=== PATIENT | female | born 1995 | race Caucasian/White ===

== ENCOUNTER 2016-06-05 17:39 | Emergency (ER) | payer OTHER ==
[~2016-06-05] VITALS: Ht 162.6 cm; Wt 111.1 kg
[~2016-06-05 17:39] MED LIST: ETON1IMP2 INTRAD; LORA-741 PO
[2016-06-05 18:04] VITALS: BP 141/86; PULSE 96; TEMP 37.8; O2SAT 98; Ht 162.6 cm; Wt 111.1 kg
[2016-06-05] MEDS ORDERED: PHEN37.585 PO (19:12)
== END 2016-06-05 18:55 | disposition left against medical advice (07) ==
LOC: C.EDB 17:40
DX: M54.9 Dorsalgia, unspecified (principal)

== ENCOUNTER 2016-06-14 16:06 | Emergency (ER) | payer OTHER ==
[~2016-06-14] VITALS: Ht 162.6 cm; Wt 111.4 kg
[~2016-06-14 16:06] MED LIST changes: -LORA-741 PO; +PHEN37.585 PO
[2016-06-14 16:12] VITALS: TEMP 37.1; Ht 162.6 cm; Wt 111.4 kg
[2016-06-14] MEDS ORDERED: MoRPHine SULFATE 4 MG/ML 1 ML CARP\\VIAL IV STA (16:50)
[2016-06-14] MEDS ORDERED: LORAZEPAM 2 MG/ML 1 ML VIAL IV PRN (17:00)
--- NOTE | 2016-06-14 17:14 | EMERGENCY ROOM VISIT NOTE ---
History Report prepared by Marlo: Carol Barraza Under the Supervision of: Dr. Kay Rutledge D.O. First contact with patient: 16:35 Chief Complaint: BACK PAIN Stated Complaint: BACK PAIN, R LEG PAIN, DR REFER History of Present Illness The patient is a 20 year old female who presents to the Emergency Room with complaints of worsening lower back pain that started a couple months ago. 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 The patient got a CT scan of her back done, which revealed 5 bulging discs that were pushing on her nerves. She followed with her workman's compensation doctor and received work restrictions. The patient states that her employer did not follow the restrictions and she reinjured her back at work 2 days ago. She saw the workman's compensation doctor again yesterday and he wanted her to come in for an MRI because she was experiencing urinary incontinence. She did not want to come, so he told her to come into the ED if she experienced incontinence again. When she first experienced urinary incontinence she had a sensation right before she experienced incontinence, but today states she did not experience any pressure or sensation prior to experiencing incontinence. The patient states that her urine is still normal looking. No prior hx of bladder/kidney problems. The back pain radiates down the entirety of her right leg and after re-injury it began radiating down her left buttock. She is also experiencing right leg numbness, but denies any numbness in her groin. The patient denies any incontinence of stool and states that she tries to avoid having bowel movements because it hurts her back to sit down. She denies fevers, chills, abdominal pain, and lower extremity edema. Source of History: patient Onset: a couple months ago Position: back (lower) Quality: other (back pain) Timing: worsening Associated Symptoms: + numbness (right leg ), + urinary symptoms ( incontinence), No abdominal pain, No chills, No fevers Note: no incontinence of stool, right leg pain, no groin numbness, no lower extremity edema Review of Systems See HPI for pertinent positives & negatives. A total of 10 systems reviewed and were otherwise negative. Past Medical & Surgical Medical Problems: (1) FAM HX-DIABETES MELLITUS (2) FAMILY HISTORY OF OTHER CARDIOVASCULAR DISEASES (3) FAMILY HX-MALIGNANCY NOS (4) OVARIAN CYST NEC/NOS (5) TOBACCO USE DISORDER Family History Cancer Diabetes mellitus Heart disease Hypertension Social History Smoking Status: Current Every Day Smoker Alcohol Use: none Drug Use: none Marital Status: single Housing Status: lives with family Occupation Status: student Current/Historical Medications Scheduled Etonogestrel (Nexplanon), 68 MG INTRAD UD Phentermine Hcl (Adipex P), 37.5 MG PO DAILY Scheduled PRN Diazepam (Valium), 5 MG PO Q6H PRN for Muscle Spasms Lidocaine (Lidoderm Patch 5%), 1 PATCH TD DAILY PRN for Pain Oxycodone/Acetaminophen 5MG/325MG (Percocet 5MG/325MG), 1-2 TABS PO Q4H PRN for Pain Allergies Coded Allergies: Hydrocodone (Verified Allergy, Intermediate, hives, 06/14/16) Aspirin (Verified Allergy, Unknown, bleeding from eyes and ears, 06/14/16) Physical Exam Vital Signs Date Time Temp Pulse Resp B/P Pulse Ox O2 Delivery O2 Flow Rate FiO2 06/14/16 20:33 96 20 128/77 96 06/14/16 18:51 101 18 121/68 96 Room Air 06/14/16 16:12 37.1 93 18 146/88 99 Room Air Physical Exam GENERAL: alert, well appearing, well nourished, no distress, non-toxic, obese EYE EXAM: normal conjunctiva, PERRL and EOM's grossly intact OROPHARYNX: no exudate, no erythema, lips, buccal mucosa, and tongue normal and mucous membranes are moist NECK: supple, no nuchal rigidity, no adenopathy, non-tender LUNGS: Clear to auscultation. Normal chest wall mechanics HEART: no murmurs, S1 normal and S2 normal ABDOMEN: abdomen soft, non-tender, normo-active bowel sounds, no masses, no rebound or guarding. BACK: tenderness over lumbar spine and bilateral PSIS, no crepitus or step-offs RECTAL: Good rectal tone. SKIN: multiple body piercings, no rashes and no bruising UPPER EXTREMITIES: upper extremities are grossly normal. LOWER EXTREMITIES: Decreased sensation to right lower extremity, decreased range of motion bilaterally but right worse than left, patellar reflexes are 2+ bilaterally, no edema, normal capillary refill NEURO EXAM: Normal sensorium, cranial nerves II-XII grossly intact, normal speech, no gross weakness of arms, no gross weakness of legs. Medical Decision & Procedures ER Provider Diagnostic Interpretation: MRI results have been interpreted by the radiologist and reviewed by me. LUMBAR SPINE MRI HISTORY: back pain, incontinence TECHNIQUE: Multiplanar multisequence MRI of the lumbar spine was performed without the use of contrast. COMPARISON: None. FINDINGS: For the purpose of the report the L5-S1 disc space will be located on axial image 27 of 30. Normal signal characteristics of the vertebral bodies as well as intervertebral discs. L1-L2: No significant central canal or neural foraminal narrowing. L2-L3: No significant central canal or neural foraminal narrowing. L3-L4: No significant central canal or neural foraminal narrowing. L4-L5: No significant central canal or neural foraminal narrowing. L5-S1: No significant central canal or neural foraminal narrowing. IMPRESSION: Normal study Electronically signed by: Zeke Montelongo M.D. 06/14/2016 6:07 PM Dictated Date/Time: 06/14/2016 6:06 PM RENAL ULTRASOUND HISTORY: Hematuria hematuria, incontinence COMPARISON: None. FINDINGS: Right kidney: Maximum dimension 10.7 cm. No evidence for hydronephrosis. Normal corticomedullary differentiation and cortical thickness. Left kidney: Maximum dimension 11.7 cm. No evidence for hydronephrosis. Normal corticomedullary differentiation and cortical thickness. Bladder: No bladder wall thickening. The bilateral ureteral jets were identified. IMPRESSION: Normal renal ultrasound. Electronically signed by: Zeke Montelongo M.D. 06/14/2016 7:55 PM Laboratory Results Test 06/14/16 16:40 Urine Color YELLOW Urine Appearance CLOUDY (CLEAR) Urine pH 5.5 (4.5-7.5) Urine Specific [place] 1.031 (1.000-1.030) Urine Protein NEG (NEG) Urine Glucose (UA) NEG (NEG) Urine Ketones NEG (NEG) Urine Occult Blood TRACE (NEG) Urine Nitrite NEG (NEG) Urine Bilirubin NEG (NEG) Urine Urobilinogen NEG (NEG) Urine Leukocyte Esterase NEG (NEG) Urine WBC (Auto) 1-5 /hpf (0-5) Urine RBC (Auto) 0-4 /hpf (0-4) Urine Hyaline Casts (Auto) 1-5 /lpf (0-5) Urine Epithelial Cells (Auto) >30 /lpf (0-5) Urine Bacteria (Auto) 1+ (NEG) Laboratory results per my review. Medications Administered Medications (Trade) Dose Ordered Sig/Tasha Route Start Time Stop Time Status Last Admin Dose Admin Morphine Sulfate (MoRPHine SULFATE INJ) 4 mg ONE STAT IV 06/14/16 16:50 06/14/16 16:53 DC 06/14/16 17:04 4 MG Lorazepam (Ativan Inj) 1 mg ONE PRN IV 06/14/16 17:00 06/14/16 20:45 DC 06/14/16 17:19 1 MG Diazepam (Valium Tab) 5 mg NOW ONCE PO 06/14/16 19:15 06/14/16 19:16 DC 06/14/16 19:22 5 MG Oxycodone/ Acetaminophen (Percocet 5-325mg Tab) 1 tab ONE STAT PO 06/14/16 19:17 06/14/16 19:18 DC 06/14/16 19:22 1 TAB Lidocaine (Lidoderm Patch 5%) 1 patch NOW ONCE TD 06/14/16 20:00 06/14/16 20:01 DC 06/14/16 20:26 1 PATCH Ondansetron HCl (Zofran Odt) 4 mg NOW STAT PO 06/14/16 20:16 06/14/16 20:17 DC 06/14/16 20:26 4 MG ED Course 1639: The patient was evaluated in room A2. A complete history and physical exam was performed. 1650: Ordered Morphine Sulfate 4 mg IV 1700: Ordered Ativan Inj 1 mg IV 1828: I reassessed the patient and updated her on the patient's MRI results. I informed her that we are going to get a bladder scan. 2004: No episodes of incontinence in the ER. Pt well appearing, texting/ talking on phone, no apparent distress. Aware of all results, states pain improved. 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 Also advised close f/u with urology regarding urinary issues. 2014: pt ambulated to bathroom and got dressed without difficulty, states she was able to use the restroom at that time without incontinence. Medical Decision Differential diagnoses includes but is not limited to lumbar radiculopathy, muscle strain, facture, cauda equina, mass, and disc herniation. Pt likely here to get MRI. No cauda equina noted, normal study. Doubt urinary incontinence, possible urge incontinence and difficulty getting to bathroom due to pain. No evidence of infection, stone. Doubt pyelo, ARF. VS stable throughout. Pt offered admission, pt declined. Pt would like to f/u as outpt. Discussed ddx, sx to watch/return for, she verbalized understanding and was agreeable with plan. Impression Primary Impression: Back pain Additional Impression: Lumbar radiculopathy Scribe Attestation The scribe's documentation has been prepared under my direction and personally reviewed by me in its entirety. I confirm that the note above accurately reflects all work, treatment, procedures, and medical decision making performed by me. Departure Information Dispostion Home / Self-Care Prescriptions Diazepam (Valium) 5 Mg Tab 5 MG PO Q6H Y for Muscle Spasms, #10 TAB Prov: Kay Rutledge, DO 06/14/16 Lidocaine (Lidoderm Patch 5%) 1 Ea Tdsy 1 PATCH TD DAILY Y for Pain, #1 BOX Prov: Kay Rutledge, DO 06/14/16 Oxycodone/Acetaminophen 5MG/325MG (PERCOCET 5MG/325MG) Tab 1-2 TABS PO Q4H Y for Pain, #14 TAB Prov: Kay Rutledge, DO 06/14/16 Referrals Saúl Ospina M.D. (PCP) Patient Instructions [facility] Additional Instructions Please call and follow-up Thursday with your aviation medicine specialist. Please continue to monitor your urine. Please follow-up with urology about the urinary issues you have been having. If you have any worsening pain, notice change in the color/odor of your urine, develop fevers, are unable to walk, develop abdominal pain, or you have any other new or concerning symptoms, please return to the emergency room. Problem Qualifiers Primary Impression: Back pain Back pain location: low back pain Chronicity: chronic Back pain laterality : bilateral Sciatica presence: with sciatica Sciatica laterality: sciatica of right side Qualified Codes: M54.41 - Lumbago with sciatica, right side; G89.29 - Other chronic pain
[2016-06-14 17:42] LABS: URINE APPEARANCE CLOUDY (CLEAR); URINE BILIRUBIN NEG (NEG); URINE COLOR YELLOW; URINE EPITHELIAL CELL AUTO >30 /lpf (0-5); URINE NITRITE NEG (NEG); URINE PH 5.5 (4.5-7.5); URINE SPECIFIC GRAVITY 1.031 (1.000-1.030); UROBILINOGEN NEG (NEG); ZZUR CULT IF INDIC CLEAN CATCH YES
[2016-06-14 17:43] LABS: MANUAL MICROSCOPIC REQUIRED? NO; REVIEW REQ? NO
--- NOTE | 2016-06-14 18:08 | DIAGNOSTIC IMAGING REPORT ---
LUMBAR SPINE MRI HISTORY: back pain, incontinence TECHNIQUE: Multiplanar multisequence MRI of the lumbar spine was performed without the use of contrast. COMPARISON: None. FINDINGS: For the purpose of the report the L5-S1 disc space will be located on axial image 27 of 30. Normal signal characteristics of the vertebral bodies as well as intervertebral discs. L1-L2: No significant central canal or neural foraminal narrowing. L2-L3: No significant central canal or neural foraminal narrowing. L3-L4: No significant central canal or neural foraminal narrowing. L4-L5: No significant central canal or neural foraminal narrowing. L5-S1: No significant central canal or neural foraminal narrowing. IMPRESSION: Normal study Electronically signed by: Zeke Montelongo M.D. 06/14/2016 6:07 PM Dictated Date/Time: 06/14/2016 6:06 PM
[2016-06-14] MEDS ORDERED: LIDODERM (LIDOCAINE) PATCH 5% TD STA (19:02)
[2016-06-14] MEDS ORDERED: DIAZEPAM 5MG TAB PO ONE (19:15)
[2016-06-14] MEDS ORDERED: OXYCODONE/ACETAMINOPHEN 5-325 TAB PO STA (19:17)
--- NOTE | 2016-06-14 19:56 | DIAGNOSTIC IMAGING REPORT ---
RENAL ULTRASOUND HISTORY: Hematuria hematuria, incontinence COMPARISON: None. FINDINGS: Right kidney: Maximum dimension 10.7 cm. No evidence for hydronephrosis. Normal corticomedullary differentiation and cortical thickness. Left kidney: Maximum dimension 11.7 cm. No evidence for hydronephrosis. Normal corticomedullary differentiation and cortical thickness. Bladder: No bladder wall thickening. The bilateral ureteral jets were identified. IMPRESSION: Normal renal ultrasound. Electronically signed by: Zeke Montelongo M.D. 06/14/2016 7:55 PM Dictated Date/Time: 06/14/2016 7:54 PM
[2016-06-14] MEDS ORDERED: LIDODERM (LIDOCAINE) PATCH 5% TD ONE (20:00)
[2016-06-14] MEDS ORDERED: OXYC-57 PO (20:11)
[2016-06-14] MEDS ORDERED: DIAZ-165 PO (20:11)
[2016-06-14] MEDS ORDERED: NF656 TD (20:11)
[2016-06-14] MEDS ORDERED: ONDANSETRON 4MG OD TAB PO STA (20:16)
[2016-06-14 20:33] VITALS: BP 128/77; PULSE 96; O2SAT 96
== END 2016-06-14 20:34 | disposition home or self-care (01) ==
LOC: C.EDB 16:08 → C.EDA 20:34
DX: M54.16 Radiculopathy, lumbar region (principal); Z83.3 Family history of diabetes mellitus; Z82.49 Family history of ischemic heart disease and other diseases of the circulatory system; Z80.9 Family history of malignant neoplasm, unspecified; F17.200 Nicotine dependence, unspecified, uncomplicated

== ENCOUNTER 2019-01-02 22:33 | Inpatient (IN) ==
[2019-01-02] MEDS ORDERED: fentaNYL citrate 100 MCG/2 ML VIAL IV STA (22:54)
[2019-01-02] MEDS ORDERED: ONDANSETRON INJ 2 MG/ML 2 ML VIAL IV STA (22:54)
[2019-01-02] MEDS ORDERED: SODIUM CHLORIDE 0.9% 1000ML 1,000 ML IV SCH (23:00)
[2019-01-02 23:17] LABS: Basophils # (auto) 0.02 K/uL (0-0.2); Basophils % (auto) 0.2 %; Eosinophils # (auto) 0.12 K/uL (0-0.5); Eosinophils % (auto) 1.1 %; Hematocrit (blood only) 40.9 % (37-47); Hemoglobin 14.2 g/dL (12.0-16.0); Immature Granulocytes # (auto) 0.02 K/uL (0.00-0.02); Immature Granulocytes % (auto) 0.2 %; Lymphocytes % (auto) 27.1 %; Mean Corpuscular Hemoglobin 31.2 pg (25-34); Mean Corpuscular Hgb Conc 34.7 g/dL (32-36); Mean Corpuscular Volume 89.9 fL (80-100); Mean Platelet Volume 10.1 fL (7.4-10.4); Monocytes % (auto) 4.5 %; Neutrophils # (auto) 7.39 K/uL (1.4-6.5); Neutrophils % (auto) 66.9 %; Platelet Count 301 K/uL (130-400); RDW Coefficient of Variation 13.2 % (11.5-14.5); RDW Standard Deviation 43.5 fL (36.4-46.3); Red Blood Count 4.55 M/uL (4.2-5.4); White Blood Count 11.05 K/uL (4.8-10.8)
[2019-01-02 23:28] LABS: INR 1.1 (0.9-1.1); Partial Thromboplastin Time 27.1 Seconds (21.0-31.0); Prothrombin Time 10.8 Seconds (9.0-12.0)
[2019-01-02 23:35] LABS: BUN Creatinine Ratio 12.9 (10-20); Calcium 9.2 mg/dl (8.5-10.1); Creatinine Clr Calc Pharmacy 79.1 ml/min; Est GFR (African American) 73.3; Est GFR (Non-African American) 63.2; Potassium 3.8 mmol/L (3.5-5.1)
[2019-01-02 23:38] LABS: Bilirubin,Total 0.6 mg/dl (0.2-1); Globulin 3.8 gm/dl (2.5-4.0); Total Protein 7.8 gm/dl (6.4-8.2)
[2019-01-03 00:48] LABS: Hepatitis B Surface Antigen Neg (Neg)
[2019-01-03] MEDS ORDERED: IOVERSOL 100ml IV PRN (00:57)
[2019-01-03 01:17] LABS: Hepatitis C IgG 13Yrs+Old_Rflx Neg (Neg)
[2019-01-03] MEDS ORDERED: cefOXitin 2,000 MG/60 ML BAG IV STA (01:25)
--- NOTE | 2019-01-03 01:50 | Emergency Department Note ---
History of Present Illness General Chief complaint: Abdominal Pain Stated complaint: EXTREME STOMACH PAIN History of Present Illness Maximum Pain Intensity: 6 This 23-year-old presents to the ER complaining of lower abdominal pain and possible miscarriage Location: Lower abdomen Quality: Crampy Severity: Moderate Duration: 2 days Timing: Symptoms started 2 days ago Context: Pain persisted and patient came in Modifying factors: better with nothing; worse with activity Patient went to the family care doctor the other day and was told she was having a miscarriage. She had a positive test and started to have bleeding. She comes in now because the pain got worse. Patient denies chest pain, dyspnea, fevers, vomiting, diarrhea, urinary symptoms. She is also requesting a hepatitis screen as she uses IV drugs and shared a needle with someone that has hepatitis. Home Medications Home Medications Medication Instructions Recorded Confirmed Type etonogestrel [Nexplanon] 1 dose SUBDERMAL CONTINOUS 07/20/18 01/02/19 History Allergies Allergy/AdvReac Type Severity Reaction Status Date / Time aspirin Allergy Intermediate bleeding Verified 01/02/19 23:35 from eyes and ears hydrocodone Allergy Intermediate hives Verified 01/02/19 23:35 Past Med/Surg History Medical History Acute appendicitis (Acute) Abdominal pain (Acute) Cellulitis of leg, right (Acute) Constipation (Acute) Exudative tonsillitis (Acute) Headache (Acute) Post-concussion headache (Acute) Surgical History No pertinent past surgical history Family History Other No pertinent past medical history Social History Preferred Language: Lao Visual Impairment: No Limitations Hearing Ability: Normal marital status: Single Current Living Situation: Parent current occupational status: employed Feels Safe at Home: Yes Smoking Status: Current every day smoker Hx Alcohol Use: No Hx Substance Use: No Review of Systems All systems reviewed & are unremarkable except as noted in HPI & below Physical Exam Vital Signs Vital Signs - 24 hr 01/02/19 22:34 01/02/19 23:21 01/02/19 23:26 Temperature 36.6 C Temperature Source Oral Sepsis Recent Fever Within 48 Hours No Sepsis Action Taken by Nursing No Action Required Pulse Rate 122 H Pulse Rate [Right Finger] 114 H Respiratory Rate 18 18 Respiratory Effort / Characteristics Non-Labored Spontaneous Respiratory Depth Normal Blood Pressure 132/86 Blood Pressure [Right Arm] 124/66 Blood Pressure Mean 101 Blood Pressure Mean [Right Arm] 85 Pulse Oximetry 100 95 99 Oxygen Delivery Method Room Air Room Air Room Air 01/03/19 00:17 01/03/19 00:59 01/03/19 01:53 Temperature 36.6 C Temperature Source Oral Sepsis Recent Fever Within 48 Hours Sepsis Action Taken by Nursing Pulse Rate Pulse Rate [Right Finger] 107 H 107 H 102 H Respiratory Rate 18 16 20 Respiratory Effort / Characteristics Respiratory Depth Blood Pressure Blood Pressure [Right Arm] 117/70 92/45 L 94/56 L Blood Pressure Mean Blood Pressure Mean [Right Arm] 85 60 68 Pulse Oximetry 100 100 100 Oxygen Delivery Method Room Air Room Air VITALS: Vitals are noted on the nurse's note and reviewed by myself. Vital signs stable. GENERAL: White female, in no acute distress, nondiaphoretic, well-developed well-nourished. SKIN: The skin was without rashes, erythema, edema, or bruising. There is no tenting of the skin. Capillary reflex less than 2 seconds. HEAD: Normocephalic atraumatic. EARS: External auditory canals clear EYES: Pupils equal round and reactive to light and accommodation. Conjunctivae without injection, sclerae without icterus. Extraocular movements intact. NOSE: Patent, turbinates without inflammation or discharge. MOUTH: Mucous membranes moist. Pharynx without erythema or exudate. Uvula midline. Airway patent. Tongue does not deviate. NECK: Supple without nuchal rigidity. No lymphadenopathy. No thyromegaly. Cer vical spine is nontender. No JVD. HEART: Regular rate and rhythm without murmurs gallops or rubs. LUNGS: Clear to auscultation bilaterally without wheezes, rales or rhonchi. No retractions or accessory muscle use. ABDOMEN: Positive bowel sounds x 4. Normal tympanic percussion. Soft, tender to palpation right lower quadrant suprapubic region, without masses or organomegaly. Mercado sign negative. No guarding or rebound tenderness. No CVA tenderness MUSCULOSKELETAL: No muscle atrophy, erythema, or edema noted. NEURO: Patient was alert and oriented to person place and time. Normal sensati on to light and sharp touch. No focal neurological deficits. Course Administered Medications Ioversol (Optiray 320 100ml) 92 ml IV ONCE PRN PRN Reason: Interaction Checking Stop: 01/07/19 00:56 Last Admin: 01/03/19 00:57 Dose: 1 ml Documented by: [id number] Discontinued Medications Fentanyl Citrate (Fentanyl Citrate) 50 mcg IV NOW STA Stop: 01/02/19 22:55 Last Admin: 01/02/19 23:11 Dose: 50 mcg Documented by: [id number] Sodium Chloride (Nss 1000ml) 1,000 mls @ 999 mls/hr IV .Q1H1M PABLO Stop: 01/03/19 00:00 Last Infusion: 01/03/19 00:13 Dose: 0 mls/hr Documented by: [id number] Admin: 01/02/19 23:11 Dose: 999 mls/hr Documented by: [id number] Cefoxitin Sodium (Mefoxin) 2,000 mg in 60 mls @ 100 mls/hr IV NOW STA Stop: 01/03/19 02:00 Last Infusion: 01/03/19 02:10 Dose: 0 mls/hr Documented by: [id number] Admin: 01/03/19 01:49 Dose: 100 mls/hr Documented by: [id number] Ondansetron HCl (Zofran) 4 mg IV NOW STA Stop: 01/02/19 22:55 Last Admin: 01/02/19 23:11 Dose: 4 mg Documented by: [id number] Medical Decision Making Medical Records Attestation: I reviewed the patient's medical records. Home Medications Current Medication List: was personally reviewed by me Laboratory Data Attestation: I reviewed the patient's lab results. Result diagrams: 01/02/19 23:09 01/02/19 23:09 Lab Results 01/02/19 01/02/19 01/02/19 Range/Units 22:54 23:09 23:09 WBC 11.05 H (4.8-10.8) K/uL RBC 4.55 (4.2-5.4) M/uL Hgb 14.2 (12.0-16.0) g/dL Hct 40.9 (37-47) % MCV 89.9 (80-100) fL MCH 31.2 (25-34) pg MCHC 34.7 (32-36) g/dL RDW Std Deviation 43.5 (36.4-46.3) fL RDW Coeff of [place] 13.2 (11.5-14.5) % Plt Count 301 (130-400) K/uL MPV 10.1 (7.4-10.4) fL Immature Gran % (Auto) 0.2 % Neut % (Auto) 66.9 % Lymph % (Auto) 27.1 % [place] % (Auto) 4.5 % Eos % (Auto) 1.1 % Baso % (Auto) 0.2 % Immature Gran # (Auto) 0.02 (0.00-0.02) K/uL Neut # (Auto) 7.39 H (1.4-6.5) K/uL Lymph # (Auto) 3.00 (1.2-3.4) K/uL [place] # (Auto) 0.50 (0.11-0.59) K/uL Eos # (Auto) 0.12 (0-0.5) K/uL Baso # (Auto) 0.02 (0-0.2) K/uL PT 10.8 (9.0-12.0) Seconds INR 1.1 (0.9-1.1) APTT 27.1 (21.0-31.0) Seconds PTT Ratio 1.0 Sodium (136-145) mmol/L Potassium (3.5-5.1) mmol/L Chloride (98-107) mmol/L Carbon Dioxide (21-32) mmol/L Anion Gap (3-11) BUN (7-18) mg/dl Creatinine (0.6-1.2) mg/dl Est Cr Clr Drug Dosing ml/min Est GFR ( Amer) Est GFR (Non-Af Amer) BUN/Creatinine Ratio (10-20) Glucose (70-99) mg/dl Calcium (8.5-10.1) mg/dl Total Bilirubin (0.2-1) mg/dl AST (15-37) U/L ALT (12-78) U/L Alkaline Phosphatase (45-117) U/L Total Protein (6.4-8.2) gm/dl Albumin (3.4-5.0) gm/dl Globulin (2.5-4.0) gm/dl Albumin/Globulin Ratio (0.9-2) HCG, Quant mIU/ml POC Ur Test (NEG) Hep Bs Antigen Neg (Neg) Hepatitis C Antibody Neg (Neg) Blood Type 01/02/19 01/02/19 01/02/19 Range/Units 23:09 23:09 23:09 WBC (4.8-10.8) K/uL RBC (4.2-5.4) M/uL Hgb (12.0-16.0) g/dL Hct (37-47) % MCV (80-100) fL MCH (25-34) pg MCHC (32-36) g/dL RDW Std Deviation (36.4-46.3) fL RDW Coeff of [place] (11.5-14.5) % Plt Count (130-400) K/uL MPV (7.4-10.4) fL Immature Gran % (Auto) % Neut % (Auto) % Lymph % (Auto) % [place] % (Auto) % Eos % (Auto) % Baso % (Auto) % Immature Gran # (Auto) (0.00-0.02) K/uL Neut # (Auto) (1.4-6.5) K/uL Lymph # (Auto) (1.2-3.4) K/uL [place] # (Auto) (0.11-0.59) K/uL Eos # (Auto) (0-0.5) K/uL Baso # (Auto) (0-0.2) K/uL PT (9.0-12.0) Seconds INR (0.9-1.1) APTT (21.0-31.0) Seconds PTT Ratio Sodium 138 (136-145) mmol/L Potassium 3.8 (3.5-5.1) mmol/L Chloride 99 (98-107) mmol/L Carbon Dioxide 31 (21-32) mmol/L Anion Gap 7.0 (3-11) BUN 16 (7-18) mg/dl Creatinine 1.20 (0.6-1.2) mg/dl Est Cr Clr Drug Dosing 79.1 ml/min Est GFR ( Amer) 73.3 Est GFR (Non-Af Amer) 63.2 BUN/Creatinine Ratio 12.9 (10-20) Glucose 112 H (70-99) mg/dl Calcium 9.2 (8.5-10.1) mg/dl Total Bilirubin 0.6 (0.2-1) mg/dl AST 11 L (15-37) U/L ALT 21 (12-78) U/L Alkaline Phosphatase 97 (45-117) U/L Total Protein 7.8 (6.4-8.2) gm/dl Albumin 4.0 (3.4-5.0) gm/dl Globulin 3.8 (2.5-4.0) gm/dl Albumin/Globulin Ratio 1.0 (0.9-2) HCG, Quant < 1 mIU/ml POC Ur Test (NEG) Hep Bs Antigen (Neg) Hepatitis C Antibody (Neg) Blood Type O Positive 01/03/19 Range/Units 02:30 WBC (4.8-10.8) K/uL RBC (4.2-5.4) M/uL Hgb (12.0-16.0) g/dL Hct (37-47) % MCV (80-100) fL MCH (25-34) pg MCHC (32-36) g/dL RDW Std Deviation (36.4-46.3) fL RDW Coeff of [place] (11.5-14.5) % Plt Count (130-400) K/uL MPV (7.4-10.4) fL Immature Gran % (Auto) % Neut % (Auto) % Lymph % (Auto) % [place] % (Auto) % Eos % (Auto) % Baso % (Auto) % Immature Gran # (Auto) (0.00-0.02) K/uL Neut # (Auto) (1.4-6.5) K/uL Lymph # (Auto) (1.2-3.4) K/uL [place] # (Auto) (0.11-0.59) K/uL Eos # (Auto) (0-0.5) K/uL Baso # (Auto) (0-0.2) K/uL PT (9.0-12.0) Seconds INR (0.9-1.1) APTT (21.0-31.0) Seconds PTT Ratio Sodium (136-145) mmol/L Potassium (3.5-5.1) mmol/L Chloride (98-107) mmol/L Carbon Dioxide (21-32) mmol/L Anion Gap (3-11) BUN (7-18) mg/dl Creatinine (0.6-1.2) mg/dl Est Cr Clr Drug Dosing ml/min Est GFR ( Amer) Est GFR (Non-Af Amer) BUN/Creatinine Ratio (10-20) Glucose (70-99) mg/dl Calcium (8.5-10.1) mg/dl Total Bilirubin (0.2-1) mg/dl AST (15-37) U/L ALT (12-78) U/L Alkaline Phosphatase (45-117) U/L Total Protein (6.4-8.2) gm/dl Albumin (3.4-5.0) gm/dl Globulin (2.5-4.0) gm/dl Albumin/Globulin Ratio (0.9-2) HCG, Quant mIU/ml POC Ur Test NEG (NEG) Hep Bs Antigen (Neg) Hepatitis C Antibody (Neg) Blood Type Imaging Data Attestation: I personally reviewed and interpreted this imaging study as follows: MDM Narrative Prior records/ancillary studies reviewed. Triage Nursing notes reviewed. Additional history obtained from the friend The patient's history was concerning for vaginal bleeding and abdominal pain. Differential diagnosis: Etiologies such as ectopic , dysfunction uterine bleeding, bleeding dyscrasia, trauma, infection, appendicitis, as well as others were entertained. Physical examination: As above. Vitals signs revealed mild tachycardia. ER treatment provided: IV fluids, Toradol On reassessment the patient felt better. Diagnostic interpretation by me: The labs revealed the patient to the Rh O+. Negative hepatitis screen. Mild leukocytosis Quantitative hCG was negative Imaging studies: CT ABDOMEN & PELVIS With Contrast: Appendicitis. The inflamed appendix measures about 1 cm. No abscess. Radiologist: Freddy Clark M.D. US PELVIC/ENDOVAG: Assuming a negative test. Correlate. Uterus is unremarkable. No complex adnexal lesions or torsion. Trace fluid in the pelvis. Occult ectopic not excluded if the patient has a positive test. Radiologist: Freddy Clark M.D. Consultation: A consultation was placed with the surgeon Dr. Wadsworth. The case was discussed and diagnostics were reviewed. He will evaluate the patient. This appears to be consistent with appendicitis. Patient was started antibiotics. Surgery is consulted. Patient is agreeable treatment plan. By the evaluation outlined above emergent etiologies such as bleeding dyscrasia, ectopic , trauma, as well as others were deemed relatively unlikely. Patient was informed that she needs to get rechecked for possible hepatitis and HIV with sharing needles with a known person who has hepatitis. Patient was encouraged to avoid IV drug abuse. The pt informed about the findings as listed above. All questions were answered and pleased with the treatment. The chart was completed utilizing Dtime Speech voice recognition software. Grammatical errors, random word insertions, pronoun errors, and incomplete sentences are an occassional consequence of this system due to software limita tions, ambient noise, and hardware issues. Any formal questions or concerns about the content, text, or information contained within the body of this dictation should be directly addressed to the physician assisted living assistant for clarification. Impression & Plan Acute appendicitis Discharge Plan Visit Data Chief Complaint: Abdominal Pain Stated Complaint: EXTREME STOMACH PAIN ED Provider: Rubina Cabrera ED Midlevel Provider: Sheryl Mena Discharge Problem: Acute appendicitis Patient Disposition: Being Evaluated by Surgeon Condition: Good Forms Stand Alone Forms: [id number] Prescriptions Prescriptions: No Action Nexplanon 68 mg Implant 1 dose SUBDERMAL CONTINOUS RF: 0 Referrals Referrals: Saúl Ospina MD [Primary Care Provider] - Discharge Problem: Acute appendicitis Qualifiers: Acute appendicitis type: with localized peritonitis Appendicitis gangrene presence: unspecified whether gangrene present Appendicitis perforation presence: without perforation Appendicitis abscess presence: without abscess Qualified Code(s): K35.30 - Acute appendicitis with localized peritonitis, without perforation or gangrene
--- NOTE | 2019-01-03 02:23 | Surgery Consultation ---
Date of Consultation January 03, 2019 Assessment & Plan (1) Abdominal pain: pt is a 23 year-old female who presents to Er with 3 days history acute abdominal pain, IMP: acute appendicitis, Plan, I recommend to do laparoscopic appendectomy, possible open, D/W benefits, risks nad alternatives of the surgery, the risks - infection, bleeding, injury bowel, abscess, sepsis, pt understood, she agree with the surgery, I answered all questions, (2) Acute appendicitis: History of Present Illness History of Present Illness pt is a 23 year-old female who presents to Er with 3 days history acute abdominal pain with nausea, no vomiting, the pain is locate at RLQ area, pt denies fever, no chest pain, no diarrhea, pt had CT scan diagnosis- acute appendicitis. I reviewed pt's labs, CT scan. Allergies Allergy/AdvReac Type Severity Reaction Status Date / Time aspirin Allergy Intermediate bleeding Verified 01/02/19 23:35 from eyes and ears hydrocodone Allergy Intermediate hives Verified 01/02/19 23:35 Home Medications Home Medications Medication Instructions Recorded Confirmed Type etonogestrel [Nexplanon] 1 dose SUBDERMAL CONTINOUS 07/20/18 01/02/19 History Patient History Medical History Abdominal pain (Acute) Cellulitis of leg, right (Acute) Constipation (Acute) Exudative tonsillitis (Acute) Headache (Acute) Post-concussion headache (Acute) Surgical History No pertinent past surgical history Family History Other No pertinent past medical history Social History Preferred Language: Welsh Visual Impairment: No Limitations Hearing Ability: Normal marital status: Single Current Living Situation: Parent current occupational status: employed Feels Safe at Home: Yes Smoking Status: Current every day smoker Hx Alcohol Use: No Hx Substance Use: No Review of Systems Review of Systems: All systems reviewed & are unremarkable except as noted in HPI & below Constitutional: as per Subjective / HPI Ear, Nose, Mouth, Throat: as per Subjective / HPI Respiratory: as per Subjective / HPI Cardiovascular: as per Subjective / HPI Gastrointestinal: as per Subjective / HPI Genitourinary: as per Subjective / HPI Musculoskeletal: as per Subjective / HPI Integumentary: as per Subjective / HPI Neurologic: as per Subjective / HPI Psychiatric: as per Subjective / HPI Endocrine: as per Subjective / HPI Hematologic / Lymphatic: as per Subjective / HPI Physical Exam Constitutional: WD/WN, vitals as above well developed and well nourished ENMT: external ear and nose normal, oropharynx normal Neck: trachea midline, no thyromegaly Respiratory: normal respiratory effort, lungs clear to auscultation normal respiratory effort Cardiovascular: RRR, no murmur, no edema Rate/Rhythm: regular rate and regular rhythm Heart Sounds: normal S2 Gastrointestinal (Abdomen): soft, tenderness at RLQ, no rebound pain, BS +, no rigid Musculoskeletal: no cyanosis or clubbing, extremities motor strength 5/5 Skin: no rashes, warm and dry Neurologic: patellar DTR's 2+ bilat, sensation intact Psychiatric: A+Ox3, euthymic affect Orientation: alert and oriented x 3 Results & Data Vital Signs (Past 12 Hours) Vital Signs Temp Pulse Pulse Resp BP BP Pulse Ox 01/03/19 01:53 36.6 C 102 H 20 94/56 L 100 01/03/19 00:59 107 H 16 92/45 L 100 01/03/19 00:17 107 H 18 117/70 100 01/02/19 23:26 114 H 18 124/66 99 01/02/19 23:21 95 01/02/19 22:34 36.6 C 122 H 18 132/86 100 Laboratory Results Abnormal lab results 01/02/19 01/02/19 Range/Units 23:09 23:09 WBC 11.05 H (4.8-10.8) K/uL Neut # (Auto) 7.39 H (1.4-6.5) K/uL Glucose 112 H (70-99) mg/dl AST 11 L (15-37) U/L Diagnostic Findings CT scan - acute appendicitis
--- NOTE | 2019-01-03 02:27 | History & Physical Bridge Note ---
Date of Service January 03, 2019 History & Physical Bridge Note I have examined the patient, reviewed the History & Physical and in the interval since the performance of the History & Physical I have noted the following changes of clinical significance: no changes noted
[2019-01-03 02:43] LABS: Appearance Urine Clear (Clear); Bacteria Urine Automated 1+ (Negative); Bilirubin Urine Negative (Negative); Blood Urine 2+ (Negative); Color Urine Yellow; Epithelial Cell Urine Auto >30 /lpf (0-5); Glucose Urine UA Negative (Negative); Ketones Urine Negative (Negative); Leukocyte Esterase Urine Negative (Negative); Nitrite Urine Negative (Negative); Protein Urine Negative (Negative); RBC Urine Automated 0-4 /hpf (0-4); Specific Gravity Urine > 1.045 (1.000-1.030); Urobilinogen Urine Negative (Negative)
[2019-01-03] MEDS ORDERED: LIDOCAINE HCL 1% 20 ML VIAL ONE (02:45)
[2019-01-03] MEDS ORDERED: BACITRACIN OINT 15 GM TUBE ONE (02:45)
[2019-01-03] MEDS ORDERED: BUPIVACAINE 0.5 % 5 MG/1 ML MPF 30ML VIAL ONE (02:45)
[2019-01-03] MEDS ORDERED: fentaNYL citrate 100 MCG/2 ML VIAL IV STA (02:46)
[2019-01-03 02:54] LABS: Cast Urine Automated 0 /lpf (0-5)
--- NOTE | 2019-01-03 02:58 | Anesthesiology Consultation ---
Date of Service January 03, 2019 Assessment & Plan (1) Encounter for pre-operative examination: Chart Review Chart Review: Acceptable Risk for Surgery and Patient NOT seen in Pre Admission Testing Consults Requested none ASA [id number] Proposed Anesthesia Anesthesia Type: General Anesthesia Line Insertion: Arterial line Risk / Benefits Reviewed With: PT / POA / Parent / Guardian, Accepts Plan and Informed Consent Obtained Additional Notes Patient with history of methamphetamine use (IV) - last use at 4 PM yesterday. . ED failed to acquire drug screen during initial evaluation. Per Dr. Wadsworth - Appendix at high risk of rupture and not safe to wait any longer for screen results. Pt also with very full stomach on CT and high aspiration risk. Will proceed understanding case is high risk for complications due to unknown drug use and very full stomach. Will place arterial line prior to induction. Risks explained to patient. History Surgery Operation Date: 01/03/19 02:35 Proposed Procedures p Laparoscopic Appendectomy - Ayleen Wadsworth MD Height/Weight Height: 5 ft 4 in Weight: 91.3 kg Allergies Allergy/AdvReac Type Severity Reaction Status Date / Time aspirin Allergy Intermediate bleeding Verified 01/02/19 23:35 from eyes and ears hydrocodone Allergy Intermediate hives Verified 01/02/19 23:35 Medications Home Medications Medication Instructions Recorded Confirmed Last Taken etonogestrel [Nexplanon] 1 dose SUBDERMAL CONTINOUS 07/20/18 01/02/19 Unknown Active Medications Generic Name Dose Route Start Last Admin Trade Name Freq PRN Reason Stop Dose Admin Ioversol 92 ml 01/03/19 00:57 01/03/19 00:57 Optiray 320 100ml IV 01/07/19 00:56 1 ml ONCE PRN Administration Interaction Checking NPO Date Last Intake of Fluids: 01/02/19 Time Last Intake of Fluids: 22:00 Date Last Intake of Solids: 01/02/19 Time Last Intake of Solids: 22:00 Last Intake of Solids Comment: Wrap from sheetz and stuffed pretzel Past Medical History Medical History Acute appendicitis (Acute) Abdominal pain (Acute) Exudative tonsillitis (Resolved) Headache (Resolved) Post-concussion headache Exercise / Class Metabolic Activity III < 4 Walking/Shop/Light housework Negative for chest pain or shortness of breath. Past Family History Family History Other No pertinent past medical history Past Surgical History Surgical History No pertinent past surgical history Past Anesthesia History No Family Hx of Anesthesia Complications (Unknown) History of PONV Hx of Motion Sickness Social History Smoking Status: Current every day smoker Do You Dip or Chew Tobacco: No Hx Alcohol Use: Yes alcohol intake frequency: a few times a month Hx Substance Use: Yes substance use type: methamphetamine Substance Use Type Other:: Last time was 4 in afternoon Review of Systems Positive for nausea - denies vomiting Physical Exam Vital Signs Last Vital Signs Temp 36.6 C 01/03/19 01:53 Pulse 101 H 01/03/19 02:57 Resp 20 01/03/19 02:57 BP 122/77 01/03/19 02:57 Pulse Ox 100 01/03/19 02:57 Constitutional + obese ENMT Mouth: no TMJ abnormality and oral opening not small Thyromental Distance: > or= 3.5 Finger Breadths Mallampati Class: I Mouth / Teeth: 1. Chipped Neck normal visual inspection; neck extension not limited Respiratory normal respiratory effort Auscultation: lungs clear to auscultation bilaterally Cardiovascular Rate/Rhythm: regular rate and regular rhythm Heart Sounds: no murmur Neurologic moves all extremities Psychiatric Orientation: alert and oriented x 3 Testing Laboratory Results 01/02/19 23:09 01/02/19 23:09 PT 10.8 Seconds (9.0-12.0) 01/02/19 23:09 INR 1.1 (0.9-1.1) 01/02/19 23:09 APTT 27.1 Seconds (21.0-31.0) 01/02/19 23:09 HCG, Quant < 1 mIU/ml 01/02/19 23:09 Urine Color Yellow 01/03/19 02:30 Urine Appearance Clear (Clear) 01/03/19 02:30 Urine pH 7.0 (4.5-7.5) 01/03/19 02:30 Ur Specific [place] > 1.045 (1.000-1.030) H 01/03/19 02:30 Urine Protein Negative (Negative) 01/03/19 02:30 Urine Glucose (UA) Negative (Negative) 01/03/19 02:30 Urine Ketones Negative (Negative) 01/03/19 02:30 Urine Nitrite Negative (Negative) 01/03/19 02:30 Ur Leukocyte Esterase Negative (Negative) 01/03/19 02:30 Urine WBC (Auto) 5-10 /hpf (0-5) H 01/03/19 02:30 Urine RBC (Auto) 0-4 /hpf (0-4) 01/03/19 02:30 U Hyaline Cast (Auto) 0 /lpf (0-5) 01/03/19 02:30 U Epithel Cells (Auto) >30 /lpf (0-5) H 01/03/19 02:30 Urine Bacteria (Auto) 1+ (Negative) H 01/03/19 02:30 Blood Type O Positive 01/02/19 23:09 01/03/19 01/02/19 02:30 23:09 HCG, Quant < 1 POC Ur Test NEG
[2019-01-03] MEDS ORDERED: ESMOLOL HCL INJ 10 MG/ML 10ML VIAL IV ONE (03:25)
[2019-01-03] MEDS ORDERED: SUCCINYLCHOLINE CHLORIDE 20 MG/ML 10 ML VIAL ONE (03:25)
[2019-01-03] MEDS ORDERED: PROPOFOL IV EMULSION 10 MG/ML 20 ML VIAL IV ONE (03:25)
[2019-01-03] MEDS ORDERED: LIDOCAINE HCL 2% 2 ML VIAL/AMP(20MG/ML) INFIL ONE (03:25)
[2019-01-03] MEDS ORDERED: ROCURONIUM BROMIDE 10 MG/ML 5 ML VIAL ONE (03:25)
[2019-01-03] MEDS ORDERED: DEXAMETHASONE SOD INJ 4 MG/ML VIAL ONE (03:25)
[2019-01-03] MEDS ORDERED: ONDANSETRON INJ 2 MG/ML 2 ML VIAL ONE (03:25)
[2019-01-03] MEDS ORDERED: fentaNYL citrate 100 MCG/2 ML VIAL ONE ×2 (03:26→04:38)
[2019-01-03] MEDS ORDERED: MIDAZOLAM HCL 1 MG/ML 2ML VIAL ONE ×2 (03:26→04:13)
[2019-01-03 03:35] LABS: Amphetamines+Metham, Urine Pos (Neg); Barbiturates, Urine Neg (Neg); Benzodiazepine, Urine Neg (Neg); Cocaine, Urine Neg (Neg); MDMA (Ecstacy), Urine Pos (Neg); Methadone, Urine Neg (Neg); Opiate, Urine Neg (Neg); Phencyclidine, Urine Neg (Neg)
[2019-01-03] MEDS ORDERED: SUGAMMADEX SODIUM 200 MG/2 ML VIAL IV ONE (05:04)
--- NOTE | 2019-01-03 05:17 | Post Operative Brief Note ---
Immediate Post Op Note v1 Date of Surgery January 03, 2019 Pre & Post Diagnosis Operation Date: 01/03/19 02:35 Pre-Op Diagnosis: acute appendicitis Post-Op Diagnosis: acute appendicitis Procedure Operation Date: 01/03/19 02:35 Actual Procedures p Laparoscopic Appendectomy(Not Applicable) - Ayleen Wadsworth MD Surgeon Ayleen Wadsworth MD [employer] Supervisor PUBLICITY MANAGER Estimated Blood Loss 10 Findings Consistent with Post-Op Diagnosis ACUTE APPENDICITIS Fluids 1200ML Specimens APPENDIX Anesthesia Type General Complications none Disposition Accompanied Patient To Recovery: Yes Disposition: Recovery Room Overlapping Procedure I was immediately available: during the entire case.
[2019-01-03] MEDS ORDERED: ONDANSETRON INJ 2 MG/ML 2 ML VIAL IV PRN (05:49)
[2019-01-03] MEDS ORDERED: PROMETHAZINE HCL 12.5 MG in SODIUM CHLORIDE 0.9% 50 ML IV PRN (05:49)
[2019-01-03] MEDS ORDERED: fentaNYL citrate 100 MCG/2 ML VIAL IV PRN (05:49)
[2019-01-03] MEDS ORDERED: ATROPINE SULFATE 0.1 MG/ML 10ML SYR IV PRN (05:49)
[2019-01-03] MEDS ORDERED: ePHEDrine sulfate 50 MG/ML AMP IV PRN (05:49)
--- NOTE | 2019-01-03 06:16 | Operative Report ---
DATE OF OPERATION: 01/03/2019 PREOPERATIVE DIAGNOSIS: Acute appendicitis. POSTOPERATIVE DIAGNOSIS: Acute appendicitis. PROCEDURE: Laparoscopic appendectomy. SURGEON: Ayleen Wadsworth MD ANESTHESIA: General. ESTIMATED BLOOD LOSS: About 10 mL. FINDINGS: Acute appendicitis. COMPLICATIONS: None. INDICATIONS FOR THE PROCEDURE: This is a 23-year-old female who presented with 3 days history of acute abdominal pain and patient had a CT scan diagnosis of acute appendicitis. I recommended to do laparoscopic appendectomy, possible open. I did talk to the patient about the benefits, risks, and alternate procedures. I indicated the risks may include but not limited such as bleeding, infection, injury to the bowel, abscess, sepsis. The patient understands. She signed informed consent and I answered all questions. DETAILS OF PROCEDURE: We brought in the patient to the OR, put the patient in the supine position. The patient received SCDs on bilateral legs to prevent DVT. Also patient received 2 g cefoxitin IV for prophylactic antibiotic. The patient received general anesthesia without difficulties. Abdomen was prepped and draped in routine sterile fashion. After timeout, I injected local anesthesia by using 1% lidocaine mixed with 0.5% Marcaine just above umbilicus. Then I made a small incision just above umbilicus, opened fascia and opened peritoneum under direct vision, put a Federico trocar in, connected to CO2 to create pneumoperitoneum. Flow rate at 6 liter per minute. Pressure not more than 14 mmHg. Once we got a nice pneumoperitoneum, we put a camera in, looked around the abdomen. It shows normal finding on the small bowel, large bowel, and the patient had significant inflammation and the enlarged appendix confirmed diagnosis of acute appendicitis. Then we put another two 5 mm trocars on the left lower quadrant area. Once all trocars in, we used a grasper to hold the appendix. We used a harmonic to take down the appendiceal, rechecked, no active bleeding. Then I used a 45 mm Endo-AMANDA stapler for transection of the base of the appendix, rechecked the staple line, intact, no active bleeding. Then we removed the appendix through the catch bag. Then we reinserted Federico trocar in, connected to CO2 to create pneumoperitoneum. Again looked around the abdomen, no active bleeding. Staple line intact and then we removed all the trocars under direct vision. No active bleeding from the trocar site. Pneumoperitoneum was released. Closed the umbilical incision, fascial layer by using #1 Vicryl [id number] x2, closed subcutaneous layer by using 2-0 Vicryl interruptedly, closed skin by using 4-0 Vicryl continuous running, closed another two 5 mm trocar sites skin only by using 4-0 Vicryl. Then we put the dressing on. The patient tolerated the procedure well. All the instrument, needle, and sponge counts were correct x2 at the end of the case. The patient transferred to recovery room in stable condition. The specimen sent to pathology. After procedure, I did talk to the patient and family member about the OR finding and procedure we did, they understand. I attest to the content of the Intraoperative Record and any orders documented therein. Any exception s are noted below.
--- NOTE | 2019-01-03 06:26 | Procedure Note ---
Procedure Note Date of Service January 03, 2019 Radial arterial line placed in OR 8 under sedation in preparation for emergency lap appy with Dr. Wadsworth. Left wrist prepped with chlorhexidine and draped with sterile towels. Site infiltrated with 1 cc of 1% lidocaine. 20 G angiocath placed under sterile technique utilizing sterile gloves, surgical hats and masks. Catheter threaded using seldinger technique with return of pulsatile, bright red blood. Site covered with occlusive dressing and taped in place. Waveform consistent with correct arterial placement. After placement, fingers of procedural hand had normal perfusion. Patient tolerated procedure well without complications. Coding
--- NOTE | 2019-01-03 06:32 | Ultrasound Report ---
US pelvic complete HISTORY: 23 years-old Female pain/bleed acute vaginal bleeding with generalized pelvic pain COMPARISON: CT abdomen and pelvis 01/03/2019 TECHNIQUE: Multiple real-time sonographic images of the deep pelvic structures were obtained transabd ominally and transvaginally assessing grayscale appearance, color and spectral flow. FINDINGS: TRANSABDOMINAL: Anteflexed uterus measures 5.4 x 2.5 x 3.9 cm. Endometrium measures 0.3 cm. Right ovary measures 2.9 x 1.7 x 1.5 cm and demonstrates arterial inflow. Left ovary measures 3.8 x 2.1 x 2.6 cm and also demo nstrates arterial inflow. Adnexa are suboptimally visualized transabdominally. TRANSVAGINAL: Anteflexed uterus measures 6.7 x 2.5 x 3.8 cm. Endometrium measures 0.3 cm. No myometrial mass lesion s. Right ovary measures 2.7 x 1.1 x 1.9 cm and is unremarkable. The left ovary measures 3.4 x 1.9 x 2 .6 cm. Dominant follicle of the left ovary measures 1.7 cm. Arterial inflow is noted bilateral ovarie s. Trace free pelvic fluid is noted adjacent to the left ovary. IMPRESSION: 1. Unremarkable sonographic appearance of the uterus, endometrium and ovaries. 2. Trace free pelvic fluid, likely physiologic. The above report was generated using voice recognition software. It may contain grammatical, syntax o r spelling errors. Electronically signed by: Obinna Claudio M.D. 01/03/2019 6:31 AM
--- NOTE | 2019-01-03 06:34 | Anesthesiology Progress Note ---
Date of Service January 03, 2019 Anesthesia Post Procedure Vital Signs Vital Signs: Temp Pulse Pulse Pulse Resp BP BP 01/03/19 06:15 106 H 18 102/79 01/03/19 06:05 100 H 20 114/68 01/03/19 05:55 94 H 24 109/65 01/03/19 05:45 95 H 22 109/65 01/03/19 05:35 36.7 C 99 H 20 102/57 L 01/03/19 02:57 101 H 20 122/77 01/03/19 01:53 36.6 C 102 H 20 94/56 L 01/03/19 00:59 107 H 16 92/45 L 01/03/19 00:17 107 H 18 117/70 01/02/19 23:26 114 H 18 124/66 01/02/19 23:21 01/02/19 22:34 36.6 C 122 H 18 132/86 Pulse Ox 01/03/19 06:15 99 01/03/19 06:05 99 01/03/19 05:55 95 01/03/19 05:45 95 01/03/19 05:35 94 01/03/19 02:57 100 01/03/19 01:53 100 01/03/19 00:59 100 01/03/19 00:17 100 01/02/19 23:26 99 01/02/19 23:21 95 01/02/19 22:34 100 Pain Intensity Abdomen: Pain Intensity: 3 Transfer of Care Handoff Completed per policy Notes Mental Status: alert / awake / arousable and participated in evaluation Patient Amnestic to Procedure: Yes Nausea / Vomiting: adequately controlled Pain: adequately controlled Airway Patency, RR, SpO2: stable & adequate BP & HR: stable & adequate Hydration State: stable & adequate Anesthetic Complications: no major complications apparent and Pt Satisfied with anesthetic care Notes: arterial line out - perfusion to left hand appropriate.
--- NOTE | 2019-01-03 06:41 | CT Scan Report ---
ABDOMEN AND PELVIS CT WITH IV CONTRAST CT DOSE: 745.75 mGy.cm HISTORY: Acute right lower quadrant abdominal pain rlq pain TECHNIQUE: Multiaxial CT images of the abdomen and pelvis were performed following the IV administrat ion of 93 cc of Optiray 320, A dose lowering technique was utilized adhering to the principles of [place] POOJA. COMPARISON STUDY: Pelvic ultrasound of same day, CT abdomen and pelvis 06/19/2015. FINDINGS: Lung bases are generally clear. There is no pneumatosis or pneumoperitoneum. The imaged inf erior cardiac chambers are unremarkable. The liver, spleen, pancreas and adrenal glands are unremarka ble. Mildly contracted gallbladder. Kidneys and ureters are unremarkable. Partially decompressed urin apurva bladder with mild wall thickening. Uterus and adnexa are unremarkable. Trace free pelvic fluid. A few phleboliths are noted about the inferior pelvis. Aorta and IVC are unremarkable. No adenopathy. Small hiatal hernia. No bowel obstruction. Inflamed dilated appendix with wall thickening and mucosal hyperemia measures up to 10 mm transversely. Mild periappendiceal inflammatory stranding. No definit e evidence of perforation or drainable fluid collection. Soft tissues and imaged breast parenchyma ap pear unremarkable. Bones appear intact. Bone and noted about the right superior pubic ramus. IMPRESSION: 1. Findings compatible with acute uncomplicated appendicitis. No evidence of perforation or drainable fluid collection. 2. No bowel obstruction. 3. Small hiatal hernia. Electronically signed by: Obinna Claudio M.D. 01/03/2019 6:39 AM
[2019-01-03] MEDS ORDERED: ETONOGESTREL 68 MG IMPLANT SQ PRN (06:59)
[2019-01-03] MEDS: LACTATED RINGER'S 1,000 ML IV SCH ×2 (08:05→19:47)
[2019-01-03] MEDS: MoRPHine SULFATE 2 MG/ML CARP IV PRN ×3 (11:23→19:30)
[2019-01-03] MEDS: ONDANSETRON INJ 2 MG/ML 2 ML VIAL IV SCH ×2 (11:23→18:40)
[2019-01-03] MEDS: TRAMADOL HCL 50 MG TABLET PO PRN (21:46)
[2019-01-04] MEDS: ONDANSETRON INJ 2 MG/ML 2 ML VIAL IV SCH ×2 (00:39→05:44)
[2019-01-04] MEDS: MoRPHine SULFATE 2 MG/ML CARP IV PRN (02:01)
[2019-01-04] MEDS: LACTATED RINGER'S 1,000 ML IV SCH (05:45)
[2019-01-04 06:05] LABS: Basophils # (auto) 0.01 K/uL (0-0.2); Basophils % (auto) 0.1 %; Eosinophils # (auto) 0.03 K/uL (0-0.5); Eosinophils % (auto) 0.3 %; Hematocrit (blood only) 35.2 % (37-47); Hemoglobin 11.7 g/dL (12.0-16.0); Immature Granulocytes # (auto) 0.01 K/uL (0.00-0.02); Immature Granulocytes % (auto) 0.1 %; Lymphocytes % (auto) 34.3 %; Mean Corpuscular Hemoglobin 30.5 pg (25-34); Mean Corpuscular Hgb Conc 33.2 g/dL (32-36); Mean Corpuscular Volume 91.7 fL (80-100); Mean Platelet Volume 10.1 fL (7.4-10.4); Monocytes # (auto) 0.66 K/uL (0.11-0.59); Monocytes % (auto) 6.1 %; Neutrophils # (auto) 6.38 K/uL (1.4-6.5); Neutrophils % (auto) 59.1 %; Platelet Count 260 K/uL (130-400); RDW Coefficient of Variation 13.5 % (11.5-14.5); RDW Standard Deviation 45.3 fL (36.4-46.3); Red Blood Count 3.84 M/uL (4.2-5.4); White Blood Count 10.79 K/uL (4.8-10.8)
--- NOTE | 2019-01-04 06:37 | Surgery Progress Note ---
Date of Service F/U S/ P lap appy, POD 1. pt is doing better, less abdominal pain, no nausea, no vomiting, she tolerated diet, January 04, 2019 Assessment & Plan (1) Abdominal pain: pt is a 23 year-old female who presents to Er with 3 days history acute abdominal pain, IMP: acute appendicitis, Plan, I recommend to do laparoscopic appendectomy, possible open, D/W benefits, risks nad alternatives of the surgery, the risks - infection, bleeding, injury bowel, abscess, sepsis, pt understood, she agree with the surgery, I answered all questions, 01/04/2019 6:35am POD1, S/P lap appy doing fine, normal WBC, Discharged home today, the post-op care instruction was given, pt agrees wth the plan, F/U 1-2 weeks, (2) Acute appendicitis: Physical Exam Constitutional: WD/WN, vitals as above well developed and well nourished ENMT: external ear and nose normal, oropharynx normal Neck: trachea midline, no thyromegaly Respiratory: normal respiratory effort, lungs clear to auscultation normal respiratory effort Cardiovascular: RRR, no murmur, no edema Rate/Rhythm: regular rate and regular rhythm Heart Sounds: normal S2 Gastrointestinal (Abdomen): normal bowel sounds, soft, nontender, no hepatosplenomegaly Percussion/Palpation: abdomen soft all incisions intact, no redness, mild tenderness, no distend, BS+ Musculoskeletal: no cyanosis or clubbing, extremities motor strength 5/5 Skin: no rashes, warm and dry Neurologic: patellar DTR's 2+ bilat, sensation intact Psychiatric: A+Ox3, euthymic affect Orientation: alert and oriented x 3 Results & Data Vital Signs (Past 12 Hours) Vital Signs Temp Pulse Resp BP Pulse Ox 01/04/19 03:17 36.8 C 69 18 111/67 98 01/03/19 23:04 36.7 C 81 16 103/67 100 Laboratory Results Abnormal lab results 01/04/19 Range/Units 05:48 RBC 3.84 L (4.2-5.4) M/uL Hgb 11.7 L (12.0-16.0) g/dL Hct 35.2 L (37-47) % Lymph # (Auto) 3.70 H (1.2-3.4) K/uL [place] # (Auto) 0.66 H (0.11-0.59) K/uL (1) Acute appendicitis Acute appendicitis type: with localized peritonitis Appendicitis abscess presence: without abscess Appendicitis gangrene presence: unspecified whether gangrene present Appendicitis perforation presence: without perforation Qualified Code(s): K35.30 - Acute appendicitis with localized peritonitis, without perforation or gangrene
--- NOTE | 2019-01-04 08:53 | Anesthesiology Progress Note ---
Date of Service January 04, 2019 Anesthesia Post Procedure Vital Signs Vital Signs: Temp Pulse Pulse Resp BP Pulse Ox 01/04/19 08:00 36.6 C 106 H 84 16 108/71 99 01/04/19 07:43 36.6 C 84 16 108/71 99 01/04/19 03:17 36.8 C 69 18 111/67 98 01/03/19 23:04 36.7 C 81 16 103/67 100 01/03/19 14:57 36.7 C 87 18 109/72 95 01/03/19 11:21 36.9 C 85 16 124/78 98 01/03/19 09:53 36.8 C 85 16 98/63 L 98 01/03/19 09:12 91 H 16 98/67 L 98 Pain Intensity Abdomen: Pain Intensity: 3 Notes Mental Status: alert / awake / arousable and participated in evaluation Patient Amnestic to Procedure: Yes Nausea / Vomiting: adequately controlled Pain: adequately controlled Airway Patency, RR, SpO2: stable & adequate BP & HR: stable & adequate Hydration State: stable & adequate Anesthetic Complications: no major complications apparent and Pt Satisfied with anesthetic care
[2019-01-04] MEDS: TRAMADOL HCL 50 MG TABLET PO PRN (09:14)
[2019-01-04 10:46] LABS: Hepatitis A Antibody IgM NON-REACTIVE (NON-REACTIVE); Hepatitis B Core Antibody IgM NON-REACTIVE (NON-REACTIVE)
--- NOTE | 2019-01-04 13:57 | Discharge Summary ---
ADMITTING DIAGNOSIS: Acute appendicitis. DISCHARGE DIAGNOSIS: Same. OPERATION: Laparoscopic appendectomy. SURGEON: Ayleen Wadsworth MD DETAILS OF DISCHARGE SUMMARY: This is a 23-year-old female who presented to the ER with 3-day history of right lower quadrant pain. The patient had a CT scan diagnosis of acute appendicitis. We took the patient to the OR and we did a laparoscopic appendectomy. In the OR we found the patient had acute appendicitis. The patient tolerated the procedure well. After procedure, the patient transferred to regular floor in good condition and patient tolerated a clear diet and the patient did well, no significant incision pain. The patient denied nausea, vomiting. PHYSICAL EXAMINATION: VITAL SIGNS: Temperature is 36.8, the heart rate is 69, respiratory rate 18, blood pressure is 111/67. O2 saturation is 98% on room air. GENERAL: The patient is alert, awake, oriented x3. HEENT: With normal limitation. NEUROLOGIC: Intact. NECK: No JVD. CHEST: Bilateral lung sounds clear. HEART: Normal S1, S2. No murmur. ABDOMEN: Soft and nondistended, mild incision pain and all dressing intact and no redness, no drainage around the incision. Bowel sounds positive. EXTREMITIES: No edema. PLAN: The patient wanted to go home. We gave the patient postop care instruction. The patient understands. I will follow up with the patient in 1-2 weeks. I gave the patient tramadol 50 mg p.o. q. 8 hours p.r.n. for pain. The patient agreed to go home. [facility]
[2019-01-06 11:04] LABS: Amphetamine Urine, Confirm 5890 NG/ML (CUTOFF=250); Methamphetamine, Ur Confirm >25000 NG/ML (CUTOFF=250)
== END 2019-01-04 10:33 | disposition home or self-care (01) | DRG 343 ==
LOC: ED 22:33 → OR 01-03 02:59 → 3W 01-03 05:22